=== PATIENT | female | born 1940 | race Caucasian/White ===

== ENCOUNTER 2021-03-04 08:42 | Outpatient (CLI) | payer OTHER ==
[~2021-03-04 08:42] MED LIST: LEVOTHROID25 MCG
== END 2021-03-04 11:26 | disposition home or self-care (01) ==
LOC: SONOGRAMA 08:42
PROVIDERS: ATTEND Pathology Anatomic Pathology & Clinical Pathology
DX: D34 Benign neoplasm of thyroid gland (principal); E06.3 Autoimmune thyroiditis